=== PATIENT | female | born 1985 | race Caucasian/White ===

== ENCOUNTER 2019-03-05 16:45 | Emergency (ER) | payer OTHER ==
--- NOTE | 2019-03-05 17:32 | ED.PDOC ---
History of Present Illness - General Chief Complaint: General Time Seen by Provider: 03/05/19 17:28 Source: patient, Vital Signs reviewed Additional Information: 33 YEAR OLD 19 WEEKS FEMALE PRESENTS TO THE ED WITH COMPLAINTS OF HEADACHE LAST 3 DAYS SHE IS [place] CALLED HER OB SHE RECOMMENDED TO GO TO THE LOCAL ER HER HEADACHE IS FRONTAL TOOK TYLENOL PRIOR TO ARRIVAL THAT HAS SIGNIFICANTLY HELPED THE HEADACHE SHE ALSO REPORTS TINGLING IN THE LATERAL LEFT RODNEY SHE HAS NO HISTORY OF FEVER NECK PAIN PHOTOPHOBIA NAUSEA SHE IS LACKING SLEEP SHE IS ALSO WORRIED ABOUT THE BABY SHE HAS NO SINUS DRAINAGE NO SORE THROAT NO EAR ACHE NO TOOTH ACHE - History of Present Illness Timing/Duration: changing over time Severity: mild, moderate Improving Factors: nothing Worsening Factors: nothing Associated Symptoms: denies symptoms Review of Systems - Review of Systems Constitutional: States: no symptoms reported EENTM: States: no symptoms reported Respiratory: States: no symptoms reported Cardiology: States: no symptoms reported Gastrointestinal/Abdominal: States: no symptoms reported Genitourinary: States: no symptoms reported Musculoskeletal: States: no symptoms reported Skin: States: no symptoms reported Neurological: States: no symptoms reported Endocrine: States: no symptoms reported Hematologic/Lymphatic: States: no symptoms reported Physical Exam - Physical Exam General Appearance: Alert Eye Exam: bilateral normal Ears, Nose, Throat: hearing grossly normal, normal ENT inspection, normal pharynx Neck: non-tender, full range of motion, supple, normal inspection Respiratory: chest non-tender, lungs clear, normal breath sounds, no respiratory distress, no accessory muscle use Cardiovascular/Chest: normal peripheral pulses, regular rate, rhythm, no edema, no gallop, no JVD, no murmur Gastrointestinal/Abdominal: normal bowel sounds, non tender, soft, no organomegaly, no pulsatile mass Back Exam: normal inspection, no CVA tenderness, no vertebral tenderness Extremity: normal range of motion, non-tender, normal inspection 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 Copy, Patient Portal Self Enrollment Referrals: UNKNOWN,PHYSICIAN [Primary Care Provider] - 1-2 Weeks Additional Instructions: REST PLENTY OF FLUIDS IF SYMPTOMS PERSISTS RECOMMEND MRI WHICH IS SAFER IN RETURN TO ED IF SYMPTOMS ARE ANY WORSE
[2019-03-05 17:42] VITALS: BP 124/72; TEMP 98.5; O2SAT 98
== END 2019-03-05 17:40 | disposition home or self-care (01) ==
LOC: ER 16:45
DX: O99.89 Other specified diseases and conditions complicating pregnancy, childbirth and the puerperium (principal); R51 Headache; Z3A.19 19 weeks gestation of pregnancy